=== PATIENT | female | born 1990 | race Caucasian/White ===

== ENCOUNTER 2019-11-18 07:36 | Emergency (ER) | payer BC ==
[2019-11-18] MEDS ORDERED: PIRMELLA 1/351 TAB PO (07:47)
[2019-11-18] MEDS ORDERED: CLARITIN 1010 MG/TAB PO (07:47)
[2019-11-18] MEDS ORDERED: PRILOSEC OTC20 MG PO (07:47)
[2019-11-18] MEDS ORDERED: PREDNISONE20 M1 PO (09:11)
[2019-11-18 09:26] VITALS: BP 131/80
== END 2019-11-18 09:27 | disposition home or self-care (01) ==
LOC: ED 07:36
DX: T78.40XA Allergy, unspecified, initial encounter (principal)
CPT/HCPCS: J1200; J2930; J3490; J7030